=== PATIENT | male | born 1995 | race Two or more races ===

== ENCOUNTER 2025-09-04 01:54 | Emergency (ER) | payer OTHER ==
[~2025-09-04] VITALS: Ht 190.5 cm; Wt 97.5 kg
[2025-09-04 01:56] VITALS: TEMP 98.6
[2025-09-04 02:09] VITALS: BP 117/75; O2SAT 99
[2025-09-04] MEDS: IV LR 1000 ML 1,000 ML IV ONE (02:27)
[2025-09-04 02:32] LABS: PLATELET COUNT (AUTO) 277 K/uL (150-450); RED BLOOD CELL COUNT(AUTO) 5.38 MIL/uL (4.5-6.0); RED CELL DISTRIBUTION WIDTH 13.6 % (11.5-15.0); WHITE BLOOD COUNT (AUTO) 16.1 K/uL (4.3-11.0)
[2025-09-04 02:58] LABS: CALCIUM, SERUM 8.9 mg/dL (8.5-10.1); CREATININE 1.2 mg/dL (0.6-1.3); SODIUM SERUM 143.0 mmol/L (136-145); UREA NITROGEN, BLOOD 21.0 mg/dL (7-18)
[2025-09-04] MEDS ORDERED: ONDA4TAB11 PO (03:29)
== END 2025-09-04 03:47 | disposition home or self-care (01) ==
LOC: ER 01:56
DX: K52.9 Noninfective gastroenteritis and colitis, unspecified (principal); R55 Syncope and collapse; R11.10 Vomiting, unspecified; Z91.048 Other nonmedicinal substance allergy status
CPT/HCPCS: 99284; 96360; 85025; 80048; 36415; J7120 ×2